=== PATIENT | female | born 1975 | race Caucasian/White ===

== ENCOUNTER 2016-08-17 10:41 | Emergency (ER) | payer SELFPAY ==
[2016-08-17] MEDS ORDERED: ONDANSETRON ODT 4 MG TAB.RAPDIS ONE (11:22)
[2016-08-17] MEDS ORDERED: HYDROcodone/APAP 5/325 MG 1 TAB TABLET PO ONE (11:23)
--- NOTE | 2016-08-17 11:28 | ER NURSING DOCUMENTATION ---
Nurse's Notes [facility] Name:Ave Rucker Age:41 yrs Sex:Female :1975 Arrival Date:08/17/2016 Time:10:41 Bed1 Private MD: Diagnosis:Foreign Body in Finger Presentation: 08/17 10:49 Presenting complaint: Patient states: Unable to remove ring from left index finger. sj Placed on finger last night; finger swollen this am. Has already tried string, vaseline, and ice without success. Transition of care: Home. Notified ED Physician of patient's arrival and CC Abdirizak Winter notified. Care prior to arrival:. 10:49 Method Of Arrival: Walk In 10:49 Acuity: PURVI 3 sj Triage Assessment: 10:55 General: Appears uncomfortable, Behavior is cooperative. Pain: Complains of pain in sj left index finger Pain currently is 6 out of 10 on a pain scale. Musculoskeletal: Circulation, motion, and sensation intact Capillary refill < 3 seconds Swelling present in left index finger. 11:19 Injury Description: no open wound, finger swollen and purple, brisk cap refill. sj Historical: - Allergies: Codeine; Paxil CR; - Home Meds: 1. Celexa Oral 2. Klonopin Oral 3. trazodone Oral - PMHx: cervical spine pain, chronic; - PSHx: Hysterectomy; - Tetanus: unknown. - Ebola Screening: : Patient negative for fever greater than or equal to 101.5 degrees Fahrenheit, and additional compatible Ebola Virus Disease symptoms. Patient denies exposure to infectious person. Patient denies travel to an Ebola-affected area in the 21 days before illness onset. No symptoms or risks identified at this time. . - Immunization history: Pneumococcal vaccine is not up to date, Patient has never been vaccinated Flu Vaccine None. - Social history: Smoking status: Patient uses tobacco products, current every day smoker. Patient uses alcohol marijuana. Screenin:18 Infectious Disease Risk None. Abuse screen: Denies threats or abuse. Denies injuries sj from another. Nutritional screening: No deficits noted. Assessment: 11:09 Reassessment: Also c/o headache from neck pain and nausea.. Neuro: Denies paresthesias sj in left index finger. Vital Signs: 10:56 BP 123 / 59; Pulse 92; Resp 20; Temp 97.7; Pulse Ox 95% on R/A; Weight 61.23 kg; Height sj 5 ft. 0 in. (152.40 cm); Pain 6/10; 10:56 Body Mass Index 26.37 (61.23 kg, 152.40 cm) sj ED Course: 10:44 Patient arrived in ED. arc 10:49 Tamie Cedeño is Primary Nurse. sj 10:53 Triage completed. sj 10:57 Ice pack applied. attempted removal with Windex and string. Unsuccessful. Hand elevated sj with ice pack. 11:04 Phoenix Reveles MD is Attending Physician. cuong 11:18 Valuables Remains with patient Patient has correct armband on for positive sj identification. Bed in low position. Call light in reach. Administered Medications: 11:15 Drug: HYDROcodone-acetaminophen 5 mg-325 mg 1 tabs; Route: PO; sj 11:28 Follow up: Response: Medication administered at discharge. sj 11:15 Drug: Zofran 4 mg; Route: PO; sj 11:28 Follow up: Response: Medication administered at discharge. Outcome: 11:05 Discharge ordered by . cuong 11:18 Discharged to home ambulatory. sj 11:18 Condition: stable 11:18 Instructed on discharge instructions, follow up and referral plans. Demonstrated understanding of instructions. 11:27 Patient left the ED. sj Signatures: Phoenix Reveles MD MD jm Chew, Amelia, Reg Reg arc Tamie Cedeño sj
--- NOTE | 2016-08-17 11:29 | ER PHYSICIAN DOCUMENTATION ---
Physician Documentation [facility] Name:Ave Rucker Age:41 yrs Sex:Female :1975 Arrival Date:08/17/2016 Time:10:41 Bed1 Private MD: Phoenix Thibodeaux Disposition: 08/17/16 11:05 Discharged to Home/Self Care. Impression: Foreign Body in Finger. - Condition is Good. - Discharge Instructions: FOREIGN BODY, Soft Tissue [Removed]. - Medical Reconciliation form form. - Follow up: Private Physician; When: As needed; Reason: Continuance of care. - Problem is new. - Symptoms have improved. HPI: 08/17 11:00 This 41 yrs old Female presents to ER via Walk In with complaints of Finger jm Injury. 11:00 The patient or guardian reports ring is stuck on finger and hurts. . The complaints jm affect the palmar aspect of proximal phalanx of left ring finger. Onset: The symptom(s)/episode began/occurred yesterday, and became worse today. Historical: - Allergies: Codeine; Paxil CR; - Home Meds: 1. Celexa Oral 2. Klonopin Oral 3. trazodone Oral - PMHx: cervical spine pain, chronic; - PSHx: Hysterectomy; - Tetanus: unknown. - Ebola Screening: : Patient negative for fever greater than or equal to 101.5 degrees Fahrenheit, and additional compatible Ebola Virus Disease symptoms. Patient denies exposure to infectious person. Patient denies travel to an Ebola-affected area in the 21 days before illness onset. No symptoms or risks identified at this time. . - Immunization history: Pneumococcal vaccine is not up to date, Patient has never been vaccinated Flu Vaccine None. - Social history: Smoking status: Patient uses tobacco products, current every day smoker. Patient uses alcohol marijuana. ROS: 11:00 MS/extremity: Positive for injury or acute deformity, swelling. jm 11:00 Skin: Positive for swelling. Exam: 11:00 Constitutional: The patient appears alert, awake. jm 11:00 Musculoskeletal/extremity: Sensation intact. ring around L ring finger w color change.. 11:00 Psych: Behavior/mood is pleasant, cooperative, Affect is calm. Vital Signs: 10:56 BP 123 / 59; Pulse 92; Resp 20; Temp 97.7; Pulse Ox 95% on R/A; Weight 61.23 kg; Height sj 5 ft. 0 in. (152.40 cm); Pain 6/10; 10:56 Body Mass Index 26.37 (61.23 kg, 152.40 cm) Procedures: 11:00 Foreign Body Removal: a ring, from the left palmar aspect of proximal phalanx of left jm ring finger, by ring cutter. The patient tolerated the removal well. MDM: 11:00 Differential diagnosis: ring strangulation to finger. Data reviewed: vital signs, nurses notes, and as a result, I will discharge patient. Counseling: I had a detailed discussion with the patient and/or guardian regarding: the historical points, exam findings, and any diagnostic results supporting the discharge/admit diagnosis. 11:04 Patient medically screened. Dispensed Medications: 11:15 Drug: HYDROcodone-acetaminophen 5 mg-325 mg 1 tabs; Route: PO; sj 11:28 Follow up: Response: Medication administered at discharge. sj 11:15 Drug: Zofran 4 mg; Route: PO; sj 11:28 Follow up: Response: Medication administered at discharge. sj Signatures: Phoenix Reveles MD MD jm Janzen, Sarah
== END 2016-08-17 11:28 | disposition home or self-care (01) ==
LOC: ER 10:41
DX: S60.445A External constriction of left ring finger, initial encounter (principal); W49.04XA Ring or other jewelry causing external constriction, initial encounter
CPT/HCPCS: 99283

== ENCOUNTER 2016-09-18 11:28 | Emergency (ER) | payer MEDICAID ==
[2016-09-18] MEDS ORDERED: DEXAMETHASONE 10 MG/ML VIAL ONE (13:06)
[2016-09-18] MEDS ORDERED: LORazepam 2 MG/ML INJ ONE (13:07)
--- NOTE | 2016-09-18 16:27 | ER PHYSICIAN DOCUMENTATION ---
Physician Documentation [facility] Name:Ave Rucker Age:41 yrs Sex:Female :1975 Arrival Date:09/18/2016 Time:11:28 Bed5 Private MD: Barrett Nicole Disposition: 09/18/16 12:54 Discharged to Home/Self Care. Impression: Acute Headache. - Condition is Good. - Discharge Instructions: HEADACHE, Unspecified. - Medical Reconciliation form form. - Follow up: Private Physician; When: 1 week; Reason: Recheck today's complaints, Continuance of care. - Problem is an acute exacerbation. - Symptoms have improved. HPI: 09/18 12:49 This 41 yrs old Female presents to ER via Private Vehicle with complaints of sc Headache. 12:49 The patient complains of pain to the forehead, right occipital area and right base of sc the skull. The patient describes the headache as aching, constant. Onset: The symptoms/episode began/occurred 2 day(s) ago. Associated signs and symptoms: Pertinent positives: nausea, vomiting. Severity of symptoms: At its worst the pain was severe, in the emergency department the pain is unchanged. Headache History: The patient has had previous headaches and this one is similar to previous episodes. the symptoms are aggravated by nothing. The patient has experienced similar episodes in the past, chronically. new to [facility], no pcp here, doesn't like local docs or pain mngmnt. Wants trigger point injections and hydromorphone.. Historical: - Allergies: Codeine; Paxil CR; Prozac; - Home Meds: 1. Celexa Oral 2. Klonopin Oral 3. trazodone Oral - PMHx: cervical spine pain, chronic; MIGRAINES; - PSHx: HYSTERECTOMY; - Tetanus: > 10 years. - Ebola Screening: : Patient denies exposure to infectious person. Patient denies travel to an Ebola-affected area in the 21 days before illness onset. . - Social history: Smoking status: Patient uses tobacco products, current every day smoker. Patient uses marijuana Patient/guardian denies using alcohol. ROS: 12:51 Constitutional: Negative for fever, chills, and weight loss. sc Eyes: Negative for injury, pain, redness, and discharge. ENT: Negative for injury, pain, and discharge. Neck: Negative for injury, pain, and swelling. Cardiovascular: Negative for chest pain, palpitations, and edema. Respiratory: Negative for shortness of breath, cough, wheezing, and pleuritic chest pain. Abdomen/GI: Negative for abdominal pain, nausea, vomiting, diarrhea, and constipation. Back: Negative for injury and pain. MS/Extremity: Negative for injury and deformity. 12:51 Skin: Negative for injury, rash, and discoloration. sc 12:51 Neuro: Positive for headache. Exam: Constitutional: This is a well developed, well nourished patient who is awake, alert, and in no acute distress. Head/Face: Normocephalic, atraumatic. Eyes: Pupils equal round and reactive to light, extra-ocular motions intact. Lids and lashes normal. Conjunctiva and sclera are non-icteric and not injected. Cornea within normal limits. Periorbital areas with no swelling, redness, or edema. ENT: Nares patent. No nasal discharge, no septal abnormalities noted. Tympanic membranes are normal and external auditory canals are clear. Oropharynx with no redness, swelling, or masses, exudates, or evidence of obstruction, uvula midline. Mucous membranes moist. Neck: Trachea midline, no thyromegaly or masses palpated, and no cervical lymphadenopathy. Supple, full range of motion without nuchal rigidity, or vertebral point tenderness. No meningismus. Chest/axilla: Normal chest wall appearance and motion. Nontender with no deformity. No lesions are appreciated. Cardiovascular: Regular rate and rhythm with a normal S1 and S2. No gallops, murmurs, or rubs. Normal PMI, no JVD. No pulse deficits. Respiratory: Lungs have equal breath sounds bilaterally, clear to auscultation and percussion. No rales, rhonchi or wheezes noted. No increased work of breathing, no retractions or nasal flaring. Abdomen/GI: Soft, non-tender, with normal bowel sounds. No distension or tympany. No guarding or rebound. No evidence of tenderness throughout. Back: No spinal tenderness. No costovertebral tenderness. Full range of motion. 12:51 MS/ Extremity: Pulses equal, no cyanosis. Neurovascular intact. Full, normal range sc of motion, negative Homans's, calves equal bilaterally. 12:51 Neuro: Orientation: is normal, Gait: is steady. Vital Signs: 11:52 BP 139 / 81; Pulse 79; Resp 18; Pulse Ox 95% on R/A; Pain 9/10; st 12:49 Pain 8/10; st 16:25 Pain 1/10; st [place] Coma Score: 12:51 Eye Response: spontaneous(4). Verbal Response: oriented(5). Motor Response: obeys sc commands(6). Total: 15. MDM: 11:36 Patient medically screened. sc 12:51 Differential diagnosis: migraine, tension headache, vasomotor headache. Neurological sc re-evaluation: normal neurological exam including cranial nerves, orientation, mentation, motor and sensory exam, cerebellar testing, GCS normal, and normal gait. Data reviewed: vital signs, nurses notes, and as a result, I will continue to observe the patient. Counseling: I had a detailed discussion with the patient and/or guardian regarding: the historical points, exam findings, and any diagnostic results supporting the discharge/admit diagnosis, the need for outpatient follow up, old medical records. Dispensed Medications: 12:15 Drug: NS 0.9% 1000 ml; Route: IV; Rate: bolus; Site: right wrist; st 12:50 Follow up: IV Status: Completed infusion; IV Intake: 1000ml st 12:15 Drug: Toradol 30 mg; Route: IVP; Site: right wrist; st 12:49 Follow up: Response: Pain is decreased st 12:15 Drug: Benadryl 25 mg; Route: IVP; Site: right wrist; st 12:49 Follow up: Response: No adverse reaction st 12:15 Drug: Compazine 10 mg; Route: IVPB; Site: right wrist; st 12:50 Follow up: IV Status: Completed infusion; IV Intake: 250ml st 13:00 CANCELLED (Other Intervention Used): Decadron [address] 13:01 Drug: Ativan 1 mg; Route: IVP; Site: right wrist; st 16:26 Follow up: Response: Pain is decreased st 13:01 Drug: Decadron 10 mg IVP - Dexamethasone 10 mg; Route: IVP; Site: right wrist; st 16:26 Follow up: Response: Pain is decreased st Signatures: Arlyn Martinez RN RN st Chew, Scott, MD MD [place]
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
== END 2016-09-18 16:27 | disposition home or self-care (01) ==
LOC: ER 11:28
DX: R51 Headache (principal); G89.29 Other chronic pain; F17.210 Nicotine dependence, cigarettes, uncomplicated; Z79.899 Other long term (current) drug therapy
CPT/HCPCS: 96365; 96375; 99283; J1100; J2060